=== PATIENT | female | born 1950 | race Caucasian/White ===

== ENCOUNTER 2017-12-06 08:48 | Day surgery (SDC) | payer OTHER ==
[2017-12-06] MEDS: CYCLOGYL 2% OPTH OP PRN ×3 (09:30→09:40)
[2017-12-06] MEDS: TETRACAINE 0.5% UNIT-DOSE OP PRN ×3 (09:30→10:25)
[2017-12-06] MEDS: BETADINE OPTH PREP OP PRN ×2 (09:30→10:16)
[2017-12-06] MEDS ORDERED: DEX-MOXI-KETOR OPTH INJ 1/0.5/0.4 MG/ML IO ONE (09:47)
[2017-12-06] MEDS ORDERED: LIDOCAINE 1%/PHENYLEPHRINE 1.5% BSS (SURGERY) INTRAOCULA ONE (09:47)
[2017-12-06] MEDS ORDERED: LIDOCAINE 1% 20 ML MDV ID STA (09:47)
[2017-12-06] MEDS ORDERED: ZOFRAN 4 MG/2 ML IVP ONE (09:47)
[2017-12-06] MEDS ORDERED: BSS WITH EPINEPHRINE OP ONE (09:47)
[2017-12-06] MEDS ORDERED: BRIMONIDINE TARTRATE 0.2% OPTH SOL OP PRN (09:47)
[2017-12-06] MEDS ORDERED: SUBLIMAZE ONE (10:15)
[2017-12-06] MEDS ORDERED: VERSED ONE (10:15)
[2017-12-06 12:48] VITALS: TEMP 97.8
[2017-12-06 14:01] VITALS: BP 132/65
== END 2017-12-06 11:15 | disposition home or self-care (01) ==
LOC: SURG 08:48
PROVIDERS: ATTEND Ophthalmology
DX: H25.811 Combined forms of age-related cataract, right eye (principal)

== ENCOUNTER 2018-01-10 08:42 | Day surgery (SDC) ==
[2018-01-10] MEDS: BETADINE OPTH PREP OP PRN ×2 (09:00→10:09)
[2018-01-10] MEDS: TETRACAINE 0.5% UNIT-DOSE OP PRN ×3 (09:00→10:28)
[2018-01-10] MEDS: CYCLOGYL 2% OPTH OP PRN ×3 (09:01→09:11)
[2018-01-10] MEDS ORDERED: BRIMONIDINE TARTRATE 0.2% OPTH SOL OP PRN (09:10)
[2018-01-10] MEDS ORDERED: ZOFRAN 4 MG/2 ML IVP ONE (09:10)
[2018-01-10] MEDS ORDERED: LIDOCAINE 1% 20 ML MDV ID STA (09:10)
[2018-01-10 09:14] VITALS: TEMP 97.8
[2018-01-10] MEDS: DEX-MOXI-KETOR OPTH INJ 1/0.5/0.4 MG/ML IO ONE ×2 (10:16→10:29)
[2018-01-10] MEDS: LIDOCAINE 1%/PHENYLEPHRINE 1.5% BSS (SURGERY) INTRAOCULA ONE ×2 (10:17→10:29)
[2018-01-10] MEDS: BSS WITH EPINEPHRINE OP ONE ×2 (10:17→10:29)
[2018-01-10] MEDS ORDERED: SUBLIMAZE ONE (10:21)
[2018-01-10] MEDS ORDERED: VERSED ONE (10:21)
[2018-01-10 13:39] VITALS: BP 132/62
== END 2018-01-10 11:00 | disposition home or self-care (01) ==
LOC: SURG 08:42
PROVIDERS: ATTEND Ophthalmology
DX: H25.813 Combined forms of age-related cataract, bilateral (principal)